=== PATIENT | female | born 1955 | race Caucasian/White ===

== ENCOUNTER 2017-06-10 05:42 | Emergency (ER) | payer OTHER ==
--- NOTE | 2017-06-10 08:07 | DIAGNOSTIC IMAGING REPORT ---
PROCEDURE: CT ABDOMEN/PELVIS W/O CONTRAST INDICATION: ABDOMINAL PAIN TECHNIQUE: Axial CT images were obtained through the abdomen and pelvis without IV contrast. Coronal and sagittal reformations were created. COMPARISON: None. FINDINGS: Clear lung bases. Normal sized heart. No hiatal hernia. Surgical changes of partial gastric resection. 5 mm gallstone dependent in an otherwise normal gallbladder. Mild right hydronephrosis and hydroureter secondary to a a 2.7 mm stone at the right ureterovesicular junction. Left intrarenal collecting system duplication. The unenhanced appearance of the liver, adrenal glands, pancreas and spleen is normal. The abdominal aorta is normal in its course and caliber. There are no suspicious calcifications, retroperitoneal adenopathy or masses. The upper bowel loops, and mesentery are normal. Intact anterior abdominal wall. No free fluid or inflammation. Post hysterectomy. The unenhanced appearance of the ovaries, urinary bladder, pelvic vessels, and pelvic bowel loops is normal. Normal appendix. No suspicious calcifications, free pelvic fluid or mass. Intact osseous structures. Degenerative endplate osteophytosis throughout the thoracic spine. IMPRESSION: 1. Partially obstructing 2.7 mm right UVJ calculus. 2. Cholelithiasis. 3. Post hysterectomy and bariatric surgery. 4. Discussed with Dr. Workman in the emergency room. All CT scans at this facility use dose modulation, iterative reconstruction, and/or weight-based dosing when appropriate to reduce radiation dose to as low as reasonably achievable.
--- NOTE | 2017-06-10 08:14 | ED ORDER SUMMARY ---
..... Patient: ZAHIDA AMEZQUITA OrderSheet [facility] VisitID: [id number] [place] [address] 61y, F Registration Date/Time: 06/10/2017 ORDER SHEET Weight: 113.3 kg (stated) Allergies: Penicillin GENERAL ORDERS: CT Abd/Pel wo Cont Urgent (06:54 06/10/2017 George GARCIA) (Ack 6:56 CHagerty ER Utility Agent) (8:43 LWhalen R.N.) CBC w Diff Urgent (06:55 06/10/2017 George GARCIA) (Ack 6:56 CHagerty ER Utility Agent) (Collected 7:16 RMarsden R.N.) (8:08 PWeiler ER Tech1) CMP Urgent (06:55 06/10/2017 George GARCIA) (Ack 6:56 Swetha ER Utility Agent) (Collected 7:16 RMarsden R.N.) (8:08 PWeiler ER Tech1) UA-Culture if indicated Urgent (06:55 06/10/2017 George GARCIA) (Ack 6:56 CHagdanyelle ER Utility Agent) (8:43 LWhalen R.N.) MEDICATION ORDERS: IV FLUIDS: IV NS : initial bolus 1000 mL (1000 mL/hr), then none - (NOW) (06:53 06/10/2017 George GARCIA) (Ack 6:56 RMarsden R.N.) (7:16 RMarsden R.N.) Toradol IV 30 mg (NOW) (06:54 06/10/2017 George GARCIA) (Ack 6:56 RMarsden R.N.) (7:16 RMarsden R.N.) Dilaudid IV 1 mg (HIGH ALERT MEDICATION, NOW) (06:54 06/10/2017 George GARCIA) (Ack 6:56 RMarsden R.N.) (7:16 RMarsden R.N.) Dilaudid IV 1 mg (HIGH ALERT MEDICATION, NOW) (08:33 06/10/2017 George GARCIA) (8:43 LWhalen R.N.) ORDER SHEET NOTES: [Electronically signed by Mariya Puente R.N. (08:53 06/10/2017)] [Electronically signed by Ludmila Workman MD (19:10 06/11/2017)] [Electronically locked/signed by Mariya Puente R.N. (08:53 06/10/2017)]
--- NOTE | 2017-06-10 08:14 | ED CLINICAL REPORT ---
Clinical Report - Physicians/Mid Levels [facility] [address] [place] [address] 06/10/2017 5:46 Patient: ZAHIDA AMEZQUITA Time Seen: 05:52. Arrived- By private vehicle. Historian- patient. HISTORY OF PRESENT ILLNESS Chief Complaint: BACK PAIN. It is described as being moderate in degree and in the area of the right flank. The quality is noted to be "pain". Onset was last night and it is still present. No bladder dysfunction, bowel dysfunction, sensory loss or motor loss. Additional history - Patient also has pain in her right lower quadrant. Patient denies an injury. No other injury. Similar symptoms previously: None. Recent medical care: Not recently seen/assessed. REVIEW OF SYSTEMS No fever, chills, eye discomfort, headache or sore throat. No cough, difficulty breathing, chest pain, skin rash or vomiting. No diarrhea, black stools, difficulty with urination, urinary frequency or hematuria. No bloody stools. The patient has had abdominal pain and nausea. All systems otherwise negative, except as recorded above. PAST HISTORY Problems: Obesity. Sleep Apnea. Pre-diabetes. Additional Surgeries: Bariatric Surgery. Lumpectomy of breast. Medications: None. Allergies: Penicillin. SOCIAL HISTORY Never smoker. No alcohol use or drug use. ADDITIONAL NOTES The nursing notes have been reviewed. PHYSICAL EXAM Vital Signs: 06/10/2017 05:52 BP: 156/63. HR: 66. RR: 18. O2 saturation: 98%. Temp: 97.4 F. Pain level now: 9/10. Have been reviewed. Appearance: Alert. No acute distress. HEENT: Normal external inspection. Eyes: Pupils equal, round and reactive to light. Neck: Normal inspection. CVS: Normal heart rate and rhythm. Heart sounds normal. Pulses normal. Respiratory: No respiratory distress. Breath sounds normal. Abdomen: Soft. Moderate tenderness in the right lower quadrant. No guarding or rebound tenderness. Severely obese. Back: Normal inspection. No tenderness. Painless ROM. Skin: Skin warm and dry. Normal skin color. No rash. Normal skin turgor. Extremities: Extremities exhibit normal ROM. Extremities nontender. Neuro: (Grossly intact.). LABS, X-RAYS, AND EKG CT Abdomen - Pelvis: Normal aorta. Normal liver, spleen, pancreas, gallbladder and adrenals. A single urinary calculus is present in the right distal ureter (3 mm). Adnexa normal. Appendix normal. No mass. No free fluid. No bony lesion. No diverticulitis. Study type: renal stone evaluation. Abdomen - pelvic CT performed without contrast. The study was independently viewed by me, interpreted by the radiologist and contemporaneously by me and discussed with the radiologist. Prior studies were not available for comparison. Pulse Oximetry: 06/10/2017 05:52 O2 saturation: 98%. (FIO2 - room air). Interpretation: normal. PROGRESS AND PROCEDURES Course of Care: Patient was treated Symptomatically with IV fluids, Dilaudid, Toradol, and Zofran. She was worked up for abdominal pain with labs, a urinalysis and CT scan, which showed an approximately 3 mm stone in the R distal ureter. Pt was found to be feeling better on re-evaluation. Patient and family counseled in person regarding the patient's stable condition, test results, diagnosis and need for follow-up. Concerns were addressed. Old medical records reviewed. Disposition: Discharged. Condition: stable. CLINICAL IMPRESSION Right nephrolithiasis with renal colic. INSTRUCTIONS (Your CT scan shows a small kidney stone that is nearly to your bladder. Otherwise, your organs look good, although you do have one stone in your gallbladder. However, this is not causing any trouble at this time.). Warnings: SEDATIVE MEDICATION: You were given sedative medication during your visit. Do not drive or operate dangerous machinery for 6 hours. GENERAL WARNINGS: Return or contact your physician immediately if your condition worsens or changes unexpectedly, if not improving as expected, or if other problems arise. Prescription Medications: Hydrocodone/APAP 5mg / 325mg: take 1-2 orally every 6 hours as needed for pain. Dispense twelve (12). No refill. Zofran (orally disintegrating tablets) 4 mg: take 1-2 orally every 6 hours as needed for nausea. Dispense ten (10). No refill. Substitution is permissible. Flomax 0.4 mg: take 1 orally every 24 hours. Dispense five (5). No refills. Substitution is permissible. Follow-up: Follow up with your doctor in four days if not better. Understanding of the discharge instructions verbalized by patient and family. (Electronically signed by Ludmila Workman MD 06/11/2017 19:10)
--- NOTE | 2017-06-10 08:14 | ED ORDER SUMMARY ---
..... Patient: ZAHIDA AMEZQUITA OrderSheet [facility] VisitID: [id number] [place] [address] 61y, F Registration Date/Time: 06/10/2017 ORDER SHEET Weight: 113.3 kg (stated) Allergies: Penicillin GENERAL ORDERS: CT Abd/Pel wo Cont Urgent (06:54 06/10/2017 George GARCIA) (Ack 6:56 CHagerty ER Solution Advisor) (8:43 LWhalen R.N.) CBC w Diff Urgent (06:55 06/10/2017 George GARCIA) (Ack 6:56 CHagerty ER Solution Advisor) (Collected 7:16 RMarsden R.N.) (8:08 PWeiler ER Tech1) CMP Urgent (06:55 06/10/2017 George GARCIA) (Ack 6:56 Swetha ER Solution Advisor) (Collected 7:16 RMarsden R.N.) (8:08 PWeiler ER Tech1) UA-Culture if indicated Urgent (06:55 06/10/2017 George GARCIA) (Ack 6:56 CHagdanyelle ER Solution Advisor) (8:43 LWhalen R.N.) MEDICATION ORDERS: IV FLUIDS: IV NS : initial bolus 1000 mL (1000 mL/hr), then none - (NOW) (06:53 06/10/2017 George GARCIA) (Ack 6:56 RMarsden R.N.) (7:16 RMarsden R.N.) Toradol IV 30 mg (NOW) (06:54 06/10/2017 George GARCIA) (Ack 6:56 RMarsden R.N.) (7:16 RMarsden R.N.) Dilaudid IV 1 mg (HIGH ALERT MEDICATION, NOW) (06:54 06/10/2017 George GARCIA) (Ack 6:56 RMarsden R.N.) (7:16 RMarsden R.N.) Dilaudid IV 1 mg (HIGH ALERT MEDICATION, NOW) (08:33 06/10/2017 George GARCIA) (8:43 LWhalen R.N.) ORDER SHEET NOTES: [Electronically signed by Mariya Puente R.N. (08:53 06/10/2017)] [Electronically signed by Ludmila Workman MD (19:10 06/11/2017)] [Electronically locked/signed by Mariya Puente R.N. (08:53 06/10/2017)]
--- NOTE | 2017-06-10 08:14 | ED NURSING NOTES ---
Clinical Report - Nurses [facility] [address] [place] [address] 06/10/2017 5:46 [id number] Triage time 05:52. Acuity: LEVEL 3. Chief Complaint: (low back pain radiating to front). 05:59 06/10/17. Alert. No acute distress. SEPSIS SCREEN: Sepsis Screen. Negative (no infection suspected/documented). MIKO COMA SCORE: Miko Coma Scale: 15- eyes open spontaneously (4); best verbal response- oriented x 4 (5); best motor response- obeys commands (6). --05:59 Janette Perkins R.N. 05:52 06/10/17. BP: 156/63. HR: 66. RR: 18. O2 saturation: 98%. Temp: 97.4 F. Pain level now: 07/29. --05:59 Janette Perkins R.N. Weight: 113.3 kg stated. Height/Length: 63 inches Per Patient. BMI: 44.3. --05:59 Janette Perkins R.N. Medications None. --05:56 Janette Perkins R.N. Allergies Penicillin. --05:56 Janette Perkins R.N. History Historian: patient. Onset. (1-2 this morning). ( patient states she woke up from R sided low back pain that radiates to the front of her lower abdomen.). She has had constipation. ( shakiness, weakness.). Treatment AUTO PARTS CLERK: (fleet enema). PAST MEDICAL HX: Immunizations: up-to-date. Denies current . SOCIAL HX: Never smoker. No alcohol use or drug use. FALL RISK ASSESSMENT: Fall risk assessment completed. No fall risk identified. NUTRITIONAL RISK ASSESSMENT: The nutritional risk assessment revealed no deficiencies. FUNCTIONAL ASSESSMENT: Functional assessment: no impairments noted. LEARNING NEEDS ASSESSMENT: The learning needs assessment revealed no barriers. SKIN INTEGRITY ASSESSMENT: Skin integrity risk assessment completed. No skin integrity risk identified. --05:59 Janette Perkins R.N. The patient has had vomiting. Treatment AUTO PARTS CLERK: (ibuprofen). --06:02 Janette Perkins R.N. PROBLEMS: Sleep Apnea. Pre-diabetes. --05:58 Janette Perkins R.N. ADDITIONAL SURGERIES: Bariatric Surgery. Lumpectomy of breast. --05:58 Janette Perkins R.N. Interventions ID band on patient. To treatment room. --05:59 Janette Perkins R.N. PHYSICAL ASSESSMENT Ambulatory to room. GENERAL / NEURO / PSYCH: Alert. Oriented X 4. Appears in no acute distress. HEENT: Mucous membranes are pink. RESPIRATORY: Respirations not labored. CVS: Capillary refill less than 2 seconds. GI / : Abdominal distention noted as firm with tenderness to palpation. Bowel sounds within normal limits. SKIN: Skin is warm and dry. BACK: ( R low back tenderness). --06:01 Janette Perkins R.N. NURSING PROGRESS NOTES Patient gowned. Two patient identifiers checked. Call light placed in reach. Side rails up x 2. Bed placed in lowest position. Brakes of bed on. Patient ready for evaluation- chart flagged and notification provided. --06:02 Janette Perkins R.N. 07:16 06/10/2017 Site #1 started via IV in the left antecubital space with an 20g angiocath; one attempt. Blood drawn: rainbow set. Labeled in the presence of the patient and sent to the lab. Saline lock flushed with 10 mL saline. --07:16 Janette Perkins R.N. 07:16 06/10/2017 Started bag #1 1000 mL IV Fluids IV NS (Saline); bolus of 1000 mL wide open via site #1. Allergies verified and confirmed 5 rights. IV patency established. IV site checked: no pain, redness, or swelling. IV flushed thoroughly pre- and post-medication administration. Completed per protocol. --07:16 Janette Perkins R.N. 07:16 06/10/2017 Toradol IVP 30 mg given over 1 minute(s) via site #1. Allergies verified and confirmed 5 rights. IV patency established. IV site checked: no pain, redness, or swelling. IV flushed thoroughly pre- and post-medication administration. IVP given by RN. --07:16 Janette Perkins R.N. 07:16 06/10/2017 Dilaudid (HYDROmorphone HCl PF) IVP 1 mg given over 1 minute(s) via site #1. Allergies verified, confirmed 5 rights and sedative warning given to the patient. IV patency established. IV site checked: no pain, redness, or swelling. IV flushed thoroughly pre- and post-medication administration. IVP given by RN. --07:16 Janette Perkins R.N. 08:38 06/10/2017 Dilaudid (HYDROmorphone HCl PF) IVP 1 mg given over 2 minute(s) via site #1. Allergies verified, confirmed 5 rights and sedative warning given to the patient and patient's family. IV patency established. IV site checked: no pain, redness, or swelling. IV flushed thoroughly pre- and post-medication administration. --08:43 Mariya Puente R.N. DISPOSITION / DISCHARGE 08:43 06/10/17. BP: 136/45. HR: 78. RR: 18. O2 saturation: 96%. Temp: 98.2 F. Pain level now 5/10. --08:44 Mariya Puente R.N. Departure time: 08:Jun 10 2017. Condition at departure: improved. No learning barriers present. Discharge instructions provided and reviewed with the patient and family. Reviewed warnings. Reviewed medication(s). Treatments reviewed. Reviewed referrals. Patient and family verbalized understanding. Written instructions provided in Mongolian. The patient was discharged home and accompanied by family. She left the Emergency Department ambulatory and via private vehicle. Family member driving. --08:44 Mariya Puente R.N. 08:39 06/10/2017 Site #1 removed upon discharge. Catheter intact. Pressure dressing applied. --08:44 Mariya Puente R.N. 08:39 06/10/2017 IV Fluids IV NS Discontinued: bag #1 infused upon discharge. Total amount infused: 1000 mL. IV patency established. IV site checked: no pain, redness, or swelling. IV flushed thoroughly. --08:44 Mariya Puente R.N. Locked/Released at 06/10/2017 8:53 by Mariya Puente R.N.
--- NOTE | 2017-06-10 08:14 | ED NURSING NOTES ---
Clinical Report - Nurses [facility] [address] [place] [address] 06/10/2017 5:46 [id number] Triage time 05:52. Acuity: LEVEL 3. Chief Complaint: (low back pain radiating to front). 05:59 06/10/17. Alert. No acute distress. SEPSIS SCREEN: Sepsis Screen. Negative (no infection suspected/documented). MIKO COMA SCORE: Miko Coma Scale: 15- eyes open spontaneously (4); best verbal response- oriented x 4 (5); best motor response- obeys commands (6). --05:59 Janette Perkins R.N. 05:52 06/10/17. BP: 156/63. HR: 66. RR: 18. O2 saturation: 98%. Temp: 97.4 F. Pain level now: 07/29. --05:59 Janette Perkins R.N. Weight: 113.3 kg stated. Height/Length: 63 inches Per Patient. BMI: 44.3. --05:59 Janette Perkins R.N. Medications None. --05:56 Janette Perkins R.N. Allergies Penicillin. --05:56 Janette Perkins R.N. History Historian: patient. Onset. (1-2 this morning). ( patient states she woke up from R sided low back pain that radiates to the front of her lower abdomen.). She has had constipation. ( shakiness, weakness.). Treatment BAND TUMBLER: (fleet enema). PAST MEDICAL HX: Immunizations: up-to-date. Denies current . SOCIAL HX: Never smoker. No alcohol use or drug use. FALL RISK ASSESSMENT: Fall risk assessment completed. No fall risk identified. NUTRITIONAL RISK ASSESSMENT: The nutritional risk assessment revealed no deficiencies. FUNCTIONAL ASSESSMENT: Functional assessment: no impairments noted. LEARNING NEEDS ASSESSMENT: The learning needs assessment revealed no barriers. SKIN INTEGRITY ASSESSMENT: Skin integrity risk assessment completed. No skin integrity risk identified. --05:59 Janette Perkins R.N. The patient has had vomiting. Treatment BAND TUMBLER: (ibuprofen). --06:02 Janette Perkins R.N. PROBLEMS: Sleep Apnea. Pre-diabetes. --05:58 Janette Perkins R.N. ADDITIONAL SURGERIES: Bariatric Surgery. Lumpectomy of breast. --05:58 Janette Perkins R.N. Interventions ID band on patient. To treatment room. --05:59 Janette Prekins R.N. PHYSICAL ASSESSMENT Ambulatory to room. GENERAL / NEURO / PSYCH: Alert. Oriented X 4. Appears in no acute distress. HEENT: Mucous membranes are pink. RESPIRATORY: Respirations not labored. CVS: Capillary refill less than 2 seconds. GI / : Abdominal distention noted as firm with tenderness to palpation. Bowel sounds within normal limits. SKIN: Skin is warm and dry. BACK: ( R low back tenderness). --06:01 Janette Perkins R.N. NURSING PROGRESS NOTES Patient gowned. Two patient identifiers checked. Call light placed in reach. Side rails up x 2. Bed placed in lowest position. Brakes of bed on. Patient ready for evaluation- chart flagged and notification provided. --06:02 Janette Perkins R.N. 07:16 06/10/2017 Site #1 started via IV in the left antecubital space with an 20g angiocath; one attempt. Blood drawn: rainbow set. Labeled in the presence of the patient and sent to the lab. Saline lock flushed with 10 mL saline. --07:16 Janette Perkins R.N. 07:16 06/10/2017 Started bag #1 1000 mL IV Fluids IV NS (Saline); bolus of 1000 mL wide open via site #1. Allergies verified and confirmed 5 rights. IV patency established. IV site checked: no pain, redness, or swelling. IV flushed thoroughly pre- and post-medication administration. Completed per protocol. --07:16 Janette Perkins R.N. 07:16 06/10/2017 Toradol IVP 30 mg given over 1 minute(s) via site #1. Allergies verified and confirmed 5 rights. IV patency established. IV site checked: no pain, redness, or swelling. IV flushed thoroughly pre- and post-medication administration. IVP given by RN. --07:16 Janette Perkins R.N. 07:16 06/10/2017 Dilaudid (HYDROmorphone HCl PF) IVP 1 mg given over 1 minute(s) via site #1. Allergies verified, confirmed 5 rights and sedative warning given to the patient. IV patency established. IV site checked: no pain, redness, or swelling. IV flushed thoroughly pre- and post-medication administration. IVP given by RN. --07:16 Janette Perkins R.N. 08:38 06/10/2017 Dilaudid (HYDROmorphone HCl PF) IVP 1 mg given over 2 minute(s) via site #1. Allergies verified, confirmed 5 rights and sedative warning given to the patient and patient's family. IV patency established. IV site checked: no pain, redness, or swelling. IV flushed thoroughly pre- and post-medication administration. --08:43 Mariya Puente R.N. DISPOSITION / DISCHARGE 08:43 06/10/17. BP: 136/45. HR: 78. RR: 18. O2 saturation: 96%. Temp: 98.2 F. Pain level now 5/10. --08:44 Mariya Puente R.N. Departure time: 08:Jun 10 2017. Condition at departure: improved. No learning barriers present. Discharge instructions provided and reviewed with the patient and family. Reviewed warnings. Reviewed medication(s). Treatments reviewed. Reviewed referrals. Patient and family verbalized understanding. Written instructions provided in Croatian. The patient was discharged home and accompanied by family. She left the Emergency Department ambulatory and via private vehicle. Family member driving. --08:44 Mariya Puente R.N. 08:39 06/10/2017 Site #1 removed upon discharge. Catheter intact. Pressure dressing applied. --08:44 Mariya Puente R.N. 08:39 06/10/2017 IV Fluids IV NS Discontinued: bag #1 infused upon discharge. Total amount infused: 1000 mL. IV patency established. IV site checked: no pain, redness, or swelling. IV flushed thoroughly. --08:44 Mariya Puente R.N. Locked/Released at 06/10/2017 8:53 by Mariya Puente R.N.
--- NOTE | 2017-06-11 19:10 | ED DISCHARGE INSTRUCTIONS ---
Patient: ZAHIDA AMEZQUITA General Instructions [facility] VisitID: [id number] [place] [address] 61y, F Registration Date/Time: 06/10/2017 Right nephrolithiasis with renal colic. INSTRUCTIONS (Your CT scan shows a small kidney stone that is nearly to your bladder. Otherwise, your organs look good, although you do have one stone in your gallbladder. However, this is not causing any trouble at this time.). Warnings: SEDATIVE MEDICATION: You were given sedative medication during your visit. Do not drive or operate dangerous machinery for 6 hours. GENERAL WARNINGS: Return or contact your physician immediately if your condition worsens or changes unexpectedly, if not improving as expected, or if other problems arise. Prescription Medications: Hydrocodone/APAP 5mg / 325mg: take 1-2 orally every 6 hours as needed for pain. Dispense twelve (12). No refill. Zofran (orally disintegrating tablets) 4 mg: take 1-2 orally every 6 hours as needed for nausea. Dispense ten (10). No refill. Substitution is permissible. Flomax 0.4 mg: take 1 orally every 24 hours. Dispense five (5). No refills. Substitution is permissible. Follow-up: Follow up with your doctor in four days if not better. Understanding of the discharge instructions verbalized by patient and family. ADDITIONAL INFORMATION Kidney Stone (W/ Colic) The sharp cramping pain and nausea/vomiting that you have is due to a small stone which has formed in the kidney and is now passing down a narrow tube (ureter) on its way to your bladder. Once it reaches your bladder, the pain will stop. The stone may pass in your urine stream in one piece. [The size may be 1/16" to 1/4" (1-6mm)]. Or, the stone may also break up into mitesh fragments which you may not even notice. Once you have had a kidney stone, you are at risk for developing another one in the future. Home Care: Drink plenty of fluids (at least 8 to 10 glasses of water a day). Most stones will pass on their own, but may take from a few hours to a few days. Sometimes the stone is too large to pass by itself and special methods will have to be used to remove the stone. Each time you urinate, do so in a jar. Pour the urine from the jar through the strainer and into the toilet. Continue doing this until 24 hours after your pain stops. By then, if there was a kidney stone, it should pass from your bladder. Some stones dissolve into sand-like particles and pass right through the strainer. In that case, you wont ever see a stone. Save any stone that you find in the strainer and bring it to your doctor for analysis. It may be possible to prevent certain types of stones from forming. Therefore, it is important to know what kind of stone you have. Try to stay as active as possible since this will help the stone pass. Do not stay in bed unless your pain prevents you from getting up. You may notice a red, pink or brown color to your urine. This is normal while passing a kidney stone. Follow Up with your doctor or return to this facility if the pain lasts more than 48 hours. Get Prompt Medical Attention if any of the following occur: Pain that is not controlled by the medicine given Repeated vomiting or unable to keep down fluids Weakness, dizziness or fainting Fever of 100.4F (38C) or higher, or as directed by your healthcare provider Passage of solid red or brown urine (can't see through it) or urine with lots of blood clots Unable to pass urine for 8 hours and increasing bladder pressure You have been given the following additional information: Kidney Stone W/ Colic (Electronically signed by Ludmila Workman MD 06/11/2017 19:10)
--- NOTE | 2017-06-11 19:10 | ED MED RECONCILIATION SUMMARY ---
Patient: ZAHIDA AMEZQUITA Medication Reconciliation Report [facility] VisitID: [id number] [address] [place] [address] 61y, F Registration Date/Time: 06/10/2017 Weight: 113.3 kg Height/Length: 63 in. BMI: 44.3 ALLERGIES: Penicillin The patient's Home Medications are listed below: NONE. The source(s) of the original Home Medication information: Not obtained. The following Medications were given to the patient in the Emergency Department: IV NS IV Fluids bolus 1000 mL wide open, administered: 06/10/2017 7:16:00 AM Toradol [IVP] IVP 30 mg, administered: 06/10/2017 7:16:00 AM Dilaudid [IVP] IVP 1 mg, administered: 06/10/2017 7:16:00 AM Dilaudid [IVP] IVP 1 mg, administered: 06/10/2017 8:38:00 AM The following Medications were prescribed to the patient: Hydrocodone/APAP 5mg / 325mg: take 1-2 orally every 6 hours as needed for pain. Dispense twelve (12). No refill. -- Ludmila Workman MD Zofran (orally disintegrating tablets) 4 mg: take 1-2 orally every 6 hours as needed for nausea. Dispense ten (10). No refill. Substitution is permissible. -- Ludmila Workman MD Flomax 0.4 mg: take 1 orally every 24 hours. Dispense five (5). No refills. Substitution is permissible. -- Ludmila Workman MD
--- NOTE | 2017-06-11 19:10 | ED MAR SUMMARY ---
..... Medication Administration Record [facility] [address] [place] [address] Patient: ZAHIDA AMEZQUITA Visit ID: [id number] 61y, F Weight: 113.3 kg Height/Length: 63 in BMI: 44.3 ALLERGIES: Penicillin Start 07:16 06/10/2017 Janette Perkins R.N., Stop 08:39 06/10/2017 Mariya Puente R.N. Medication Administered: IV NS (SALINE), Dose: IV Fluids, Bolus: 1000 mL wide open, Dispensed: 1000 mL bag, Site: #1 left AC. Medication Ordered: IV NS : initial bolus 1000 mL (1000 mL/hr), then none - (NOW). Given 07:16 06/10/2017 Janette Perkins R.N. Medication Administered: TORADOL [IVP], Dose: 30 mg IVP over 1 minute(s), Site: #1 left AC. Medication Ordered: Toradol IV 30 mg (NOW). Given 07:16 06/10/2017 Janette Perkins R.N. Medication Administered: DILAUDID [IVP] (HYDROMORPHONE HCL PF), Dose: 1 mg IVP over 1 minute(s), Site: #1 left AC. Medication Ordered: Dilaudid IV 1 mg (HIGH ALERT MEDICATION, NOW). Given 08:38 06/10/2017 Mariya Puente RMurrayNMurray Medication Administered: DILAUDID [IVP] (HYDROMORPHONE HCL PF), Dose: 1 mg IVP over 2 minute(s), Site: #1 left AC. Medication Ordered: Dilaudid IV 1 mg (HIGH ALERT MEDICATION, NOW).
--- NOTE | 2017-06-11 19:10 | ED MED RECONCILIATION SUMMARY ---
Patient: ZAHIDA AMEZQUITA Medication Reconciliation Report [facility] VisitID: [id number] [address] [place] [address] 61y, F Registration Date/Time: 06/10/2017 Weight: 113.3 kg Height/Length: 63 in. BMI: 44.3 ALLERGIES: Penicillin The patient's Home Medications are listed below: NONE. The source(s) of the original Home Medication information: Not obtained. The following Medications were given to the patient in the Emergency Department: IV NS IV Fluids bolus 1000 mL wide open, administered: 06/10/2017 7:16:00 AM Toradol [IVP] IVP 30 mg, administered: 06/10/2017 7:16:00 AM Dilaudid [IVP] IVP 1 mg, administered: 06/10/2017 7:16:00 AM Dilaudid [IVP] IVP 1 mg, administered: 06/10/2017 8:38:00 AM The following Medications were prescribed to the patient: Hydrocodone/APAP 5mg / 325mg: take 1-2 orally every 6 hours as needed for pain. Dispense twelve (12). No refill. -- Ludmila Workman MD Zofran (orally disintegrating tablets) 4 mg: take 1-2 orally every 6 hours as needed for nausea. Dispense ten (10). No refill. Substitution is permissible. -- Ludmila Workman MD Flomax 0.4 mg: take 1 orally every 24 hours. Dispense five (5). No refills. Substitution is permissible. -- Ludmila Workman MD
--- NOTE | 2017-06-11 19:10 | ED MAR SUMMARY ---
..... Medication Administration Record [facility] [address] [place] [address] Patient: ZAHIDA AMEZQUITA Visit ID: [id number] 61y, F Weight: 113.3 kg Height/Length: 63 in BMI: 44.3 ALLERGIES: Penicillin Start 07:16 06/10/2017 Janette Perkins R.N., Stop 08:39 06/10/2017 Mariya Puente R.N. Medication Administered: IV NS (SALINE), Dose: IV Fluids, Bolus: 1000 mL wide open, Dispensed: 1000 mL bag, Site: #1 left AC. Medication Ordered: IV NS : initial bolus 1000 mL (1000 mL/hr), then none - (NOW). Given 07:16 06/10/2017 Janette Perkins R.N. Medication Administered: TORADOL [IVP], Dose: 30 mg IVP over 1 minute(s), Site: #1 left AC. Medication Ordered: Toradol IV 30 mg (NOW). Given 07:16 06/10/2017 Janette Perkins R.N. Medication Administered: DILAUDID [IVP] (HYDROMORPHONE HCL PF), Dose: 1 mg IVP over 1 minute(s), Site: #1 left AC. Medication Ordered: Dilaudid IV 1 mg (HIGH ALERT MEDICATION, NOW). Given 08:38 06/10/2017 Mariya Puente RMurrayNMurray Medication Administered: DILAUDID [IVP] (HYDROMORPHONE HCL PF), Dose: 1 mg IVP over 2 minute(s), Site: #1 left AC. Medication Ordered: Dilaudid IV 1 mg (HIGH ALERT MEDICATION, NOW).
== END 2017-06-10 08:44 | disposition home or self-care (01) ==
LOC: ED SRH 05:42
DX: N20.0 Calculus of kidney (principal); G47.30 Sleep apnea, unspecified; Z88.0 Allergy status to penicillin
CPT/HCPCS: 90100; 95059